=== PATIENT | male | born 1955 | race African-American/Black ===

== ENCOUNTER 2018-01-06 17:16 | Emergency (ER) | payer OTHER ==
[~2018-01-06] VITALS: Ht 175.3 cm; Wt 88.6 kg
[2018-01-06 18:14] VITALS: BP 134/68
[2018-01-06] MEDS ORDERED: IBUPROFEN 600 MG TABLET PO ONE (18:15)
== END 2018-01-06 18:31 | disposition home or self-care (01) ==
LOC: EMS 17:18
DX: M79.644 Pain in right finger(s) (principal); W25.XXXA Contact with sharp glass, initial encounter; Y93.89 Activity, other specified; Y92.89 Other specified places as the place of occurrence of the external cause; Y99.8 Other external cause status